=== PATIENT | male | born 1965 | race Caucasian/White ===

== ENCOUNTER → 2021-03-12 | Outpatient (CLI) | payer OTHER ==
--- NOTE | 2021-03-12 12:50 | RAD ---
EXAM: XR KNEE 3 VIEWS 03/12/2021 9:31 AM CLINICAL INDICATION: Lateral knee pain, history of meniscal surgery. COMPARISON: None TECHNIQUE: 3 views of the right left knee FINDINGS: Left knee: Mild tricompartmental joint space narrowing and small osteophytes. No fracture or malalign ment. No joint effusion. Right knee: Mild tricompartmental joint space narrowing and small osteophytes. No fracture or malalig nment. No joint effusion. Small ossified body measuring 1.6 cm the popliteal fossa is nonspecific. IMPRESSION: 1. Mild tricompartment osteoarthrosis. 2. Small ossified body measuring 1.6 cm in the right popliteal fossa, nonspecific. Electronically signed by: Lupe Pollard MD (03/12/2021 12:48 PM) [id number]
== END ==
LOC: RAD 09:03
PROVIDERS: ATTEND Physician Assistant Medical
DX: M17.0 Bilateral primary osteoarthritis of knee (principal); M25.762 Osteophyte, left knee; M25.761 Osteophyte, right knee; M25.862 Other specified joint disorders, left knee; M25.861 Other specified joint disorders, right knee
CPT/HCPCS: 73562

== ENCOUNTER → 2021-04-05 | Outpatient (CLI) | payer OTHER ==
--- NOTE | 2021-04-05 17:40 | RAD ---
EXAM: Standing AP knees bilaterally DATE: 04/05/2021 1:51 PM INDICATIONS: Reason: RIGHT KNEE PAIN / Spl. Instructions: / History: COMPARISON: No prior FINDINGS/ IMPRESSION: Standing AP view of the right knee shows mild osteoarthritis with eccentric joint spaces narrowing an d marginal proliferative changes, medial compartment predominance. Mild varus joint line angulation. Negative acute fracture. Standing AP view of the left knee shows moderate-severe osteoarthritis with eccentric joint spaces na rrowing and marginal proliferative changes, medial compartment predominance. Mild varus jointline ang ulation. Negative acute fracture. Electronically signed by: Antony Mccrary MD (04/05/2021 5:37 PM) [id number]
== END ==
LOC: RAD 13:28
PROVIDERS: ATTEND Orthopaedic Surgery
DX: M17.0 Bilateral primary osteoarthritis of knee (principal)
CPT/HCPCS: 73565

== ENCOUNTER → 2022-03-26 | Outpatient (CLI) | payer OTHER ==
--- NOTE | 2022-03-26 16:53 | RAD ---
XR KNEE_AP BILAT STANDING, XR KNEE 1-2 VIEWS History: Reason: CHRONIC KNEE PAIN / Spl. Instructions: / History: Technique: 3 views bilateral knees. Comparison: None. Findings: Right knee: Moderate right knee degenerative changes most prominent within the medial patellofemoral compartment. Genu varus alignment. Minimally joint effusion. No dislocation. No acute fracture. Left knee: Advanced left knee degenerative changes most prominent within the medial compartment. Genu varus alignment. No dislocation. No acute fracture. Minimal knee joint effusion. Impression: 1. 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 Electronically signed by: Tim Lawson DO (03/26/2022 4:51 PM) [id number]
== END ==
LOC: RAD 09:56
PROVIDERS: ATTEND Physician Assistant
DX: M17.11 Unilateral primary osteoarthritis, right knee (principal); M17.0 Bilateral primary osteoarthritis of knee; M25.462 Effusion, left knee; M25.461 Effusion, right knee; M21.162 Varus deformity, not elsewhere classified, left knee; M21.161 Varus deformity, not elsewhere classified, right knee
CPT/HCPCS: 73565; 73560-50